=== PATIENT | female | born 1980 | race Hispanic/Latino ===

== ENCOUNTER 2018-08-01 16:09 | Emergency (ER) | payer BC, OTHER | END 2018-08-01 16:57 | disposition home or self-care (01) | LOC: EDH 16:09 | DX: S42.402A Unspecified fracture of lower end of left humerus, initial encounter for closed fracture (principal); Z72.0 Tobacco use; W18.39XA Other fall on same level, initial encounter; Y93.89 Activity, other specified; Y92.89 Other specified places as the place of occurrence of the external cause; Y99.8 Other external cause status | CPT/HCPCS: 99281 ==

== ENCOUNTER 2025-05-22 06:17 | Emergency (ER) | payer BC ==
[~2025-05-22] VITALS: Ht 162.6 cm; Wt 89.5 kg
--- NOTE | 2025-05-22 06:41 | ERN ---
General Chief Complaint: Abdominal Pain Stated Complaint: DIVERTICULITIS FLARE UP Time Seen by MD: 06:27 Source: patient History of Present Illness Initial Comments 44-year-old female with a history of diverticulitis. She feels like she is having a diverticulitis flare and comes in for evaluation and treatment. She points to her right upper quadrant as the source of her pain and clarifies that she has had her gallbladder and her appendix already removed. She says no fevers no chills positive diarrhea and positive GERD symptoms as well. Allergies: Coded Allergies: No Known Drug Allergies (Unverified Allergy, Unknown, 05/22/25) Past Medical History Past Medical History: Anxiety, Bipolar, Depression, Diverticulitis Past Surgical History: Appendectomy, Cholecystectomy, Female( History) LMP: May 17, 2025 Constitutional: (-) chills, (-) diaphoresis, (-) fever, (-) malaise, (-) weakness, (-) other documentation EENTM: (-) eye pain, (-) blurred vision, (-) tearing, (-) double vision, (-) ear pain, (-) ear discharge, (-) nose pain, (-) nose congestion, (-) throat pain, (-) Throat swelling, (-) mouth pain, (-) tooth pain, (-) mouth swelling, (-) other documentation Respiratory: (-) cough, (-) orthopnea, (-) short of breath, (-) stridor, (-) wheezing, (-) other documentation Cardiovascular: (-) chest pain, (-) edema, (-) palpitations, (-) syncope, (-) dyspnea on exertion, (-) other documentation Gastrointestinal/Abdominal: (+) nausea, (+) diarrhea, (+) abdominal pain, (+) rectal bleeding Genitourinary: (-) vaginal discharge, (-) vaginal bleeding, (-) dysuria, (-) frequency, (-) hematuria, (-) pain, (-) other documentation Musculoskeletal: (-) Neck pain, (-) back pain, (-) Flank Pain, (-) joint pain, (-) joint swelling, (-) muscle pain, (-) muscle stiffness, (-) gout, (-) other documentation Physical Exam General Appearance: (+) mild distress Orientation: (+) alert, (+) oriented x 3 Head/Face Trauma: No Eye: bilateral eye normal inspection, bilateral eye PERRL, bilateral eye EOMI Ear, Nose, Throat: (+) hearing grossly normal, (+) normal ENT inspection Neck: (+) normal inspection, (+) supple Respiratory: (+) chest non-tender, (+) lungs clear, (+) well ventilated Heart: (+) regular, (+) no gallop Vascular: (+) no edema, (+) normal peripheral pulse Gastrointestinal: (+) soft, (+) bowel sound present, (+) tender Results Laboratory and Microbiology Lab and Micro Result Laboratory Tests Test 05/22/25 06:37 05/22/25 06:54 White Blood Count 6.9 K/uL (4.8-10.8) Red Blood Count 4.94 MIL/uL (4.00-5.50) Hemoglobin 9.7 g/dL (12.0-16.0) L Hematocrit 33.1 % (36-48) L Mean Corpuscular Volume 67.0 fL (79-99) L Mean Corpuscular Hemoglobin 19.6 pg (27.0-33.0) L Mean Corpuscular Hemoglobin Concent 29.3 g/dL (32.0-36.0) L Red Cell Distribution Width 18.6 % (11.0-15.5) H Platelet Count 265 K/uL (130-400) Mean Platelet Volume 11.0 fL (7.5-10.5) H Immature Granulocyte % (Auto) 0.4 % (0-1) Neutrophils (%) (Auto) 60.0 % (40.0-77.0) Lymphocytes (%) (Auto) 27.6 % (21.0-51.0) Monocytes (%) (Auto) 5.5 % (3.0-13.0) Eosinophils (%) (Auto) 5.8 % (0.0-8.0) Basophils (%) (Auto) 0.7 % (0.0-5.0) Neutrophils # (Auto) 4.1 K/uL (1.8-7.7) Lymphocytes # (Auto) 1.9 K/uL (1.0-4.8) Monocytes # (Auto) 0.4 K/uL (0.1-1.0) Eosinophils # (Auto) 0.40 K/uL (0.00-0.70) Basophils # (Auto) 0.05 K/uL (0.00-0.20) Absolute Immature Granulocyte (auto 0.03 K/uL (0-1) Nucleated Red Blood Cells 0.0 % (0.0-0.19) Red Blood Cell Morphology See comments Sodium Level 139 mmol/L (136-145) Potassium Level 3.6 mmol/L (3.5-5.1) Chloride Level 105 mmol/L (101-111) Carbon Dioxide Level 25 mmol/L (21-32) Blood Urea Nitrogen 7 mg/dL (7-18) Creatinine 0.4 mg/dL (0.5-1.0) L Glomerular Filtration Rate Calc 125 mL/min (>90) Random Glucose 103 mg/dL (70-105) Total Calcium 8.5 mg/dL (8.5-10.1) Total Bilirubin 0.3 mg/dL (0.2-1.0) Aspartate Amino Transf (AST/SGOT) 19 U/L (10-37) Alanine Aminotransferase (ALT/SGPT) 28 U/L (12-78) Alkaline Phosphatase 78 U/L (50-136) Total Protein 7.1 g/dL (6.0-8.3) Albumin 3.4 g/dL (3.5-5.0) L Lipase 29 U/L (16-77) Urine Color LIGHT-YELLOW (YELLOW) Urine Appearance CLEAR (CLEAR) Urine pH 6.0 (5.0-8.0) Urine Specific A[place]da 1.016 (1.001-1.031) Urine Protein NEGATIVE mg/dL (NEGATIVE) Urine Glucose (UA) NEGATIVE mg/dL (NEGATIVE) Urine Ketones NEGATIVE mg/dL (NEGATIVE) Urine Occult Blood SMALL (NEGATIVE) H Urine Nitrate NEGATIVE (NEGATIVE) Urine Bilirubin NEGATIVE mg/dL (NEGATIVE) Urine Urobilinogen 0.2 mg/dL (0.2-1.0) Urine Leukocyte Esterase NEGATIVE Liss/uL Urine RBC 2-5 /HPF (0-1) H Urine WBC 0-1 /HPF (0-1) Urine Squamous Epithelial Cells RARE /HPF (0-2) Urine Bacteria None /HPF (None Seen) Urine HCG, Qualitative NEGATIVE (NEGATIVE) MDM MDM: Differential diagnosis: Rationale: Tests considered and ordered secondary to shared decision making include: Previous outside records reviewed: Old ER visits. Risk of complication and/or morbidity or mortality of patient management: None Medications-Per medication reconciliation Need for hospitalization: Patient does not meet criteria for hospitalization. Need for emergency major/minor surgery: No There are no social concerns with this patient. Prescription drug management Prescriptions will include symptomatic care Patient's prior external medical records from other ER visits were reviewed by me as indicated. Prior testing and results from previous visits were reviewed. Prior tests were taken into account with medical decision making and resource utilization, independent historian/historians were used to obtain complete medical history. I independently interpreted the test that were performed, results were reviewed by me and considered findings on radiology if ordered. Medical management and examination interpretation discussions were had by me with other qualified healthcare professionals as indicated for the patient's care. 44-year-old female hit off at shift change repeat evaluation reveals stable labs CT scan and urine, vital signs stable repeat abdominal exam is stable, patient advised about abnormal uterus on CT scan and need to follow up with a golf course mechanic. Her pain is now resolved to the right ED Course Orders Procedure Category Date Status Time Cbc With Differential LAB 05/22/25 Complete 06:28 Comprehensive LAB 05/22/25 Complete Metabolic Panel 06:28 Lipase LAB 05/22/25 Complete 06:28 Lidocaine Hcl 2% PHA 05/22/25 Complete Viscous (Lidocaine Hcl 07:00 Mag/Alum/Simeth 30ml PHA 05/22/25 Complete (Maalox Plus 30ml) 07:00 Dicyclomine Hcl PHA 05/22/25 Complete (Bentyl 10mg/5ml 07:00 12 Lead Ekg Tracing- EKG 05/22/25 Complete Technical 06:35 ,Urine Test LAB 05/22/25 Complete 06:35 Urinalysis Profile LAB 05/22/25 Complete 06:35 Ct Abdomen/Pelvis CT 05/22/25 Resulted W/Wo Contras 06:35 Iohexol (Omnipaque) PHA 05/22/25 Complete 07:48 Current Medications Medications (Trade) Dose Ordered Sig/Samina Route PRN Reason Start Time Stop Time Status Last Admin Dose Admin Al Hydroxide/Mg Hydroxide (MAALox PLUS 30ML) 30 ml ONCE ONCE PO 05/22/25 07:00 05/22/25 07:01 DC 05/22/25 07:24 Dicyclomine HCl (Bentyl 10mg/5ml Syrup) 10 mg ONCE ONCE PO 05/22/25 07:00 05/22/25 07:01 DC 05/22/25 07:24 Iohexol (Omnipaque) 35,000 mg STK-MED ONCE IV 05/22/25 07:48 05/22/25 07:48 DC Lidocaine HCl (Lidocaine HCl 2% Viscous) 10 ml ONCE ONCE PO 05/22/25 07:00 05/22/25 07:01 DC 05/22/25 07:24 Vital Signs Date Time Temp Pulse Resp B/P (MAP) Pulse Ox O2 Delivery O2 Flow Rate FiO2 05/22/25 06:48 98.4 74 14 133/63 100 Room Air* 0 21 05/22/25 06:18 98.6 82 19 136/79 99 Room Air 0 DX & DISP Disposition: Discharge Departure Impression: Primary Impression: Acute abdominal pain Condition: Stable Scripts Ondansetron (Ondansetron Odt) 4 Mg Tab.rapdis 1 TAB PO Q6HPRN PRN for nausea/vomiting for 4 Days, #16 TAB 0 Refills Prov: BE KO MD 05/22/25 Referrals: SELF,REFERRAL (PCP) ROSE MARIE ALLEN MD May 22, 2025 06:41 BE KO MD May 22, 2025 09:06
[2025-05-22 06:44] LABS: IMMATURE GRANULOCYTE ABSOLUTE 0.03 K/uL (0-1); NUCLEATED RED BLOOD CELLS 0.0 % (0.0-0.19); PLATELET COUNT (AUTO) 265 K/uL (130-400); RED BLOOD CELL COUNT(AUTO) 4.94 MIL/uL (4.00-5.50); RED CELL DISTRIBUTION WIDTH 18.6 % (11.0-15.5); WHITE BLOOD COUNT (AUTO) 6.9 K/uL (4.8-10.8)
[2025-05-22 07:02] LABS: ASPARTATE AMINOTRANSFERASE 19.0 U/L (10-37); CREATININE 0.4 mg/dL (0.5-1.0); GLOMERULAR FILTR. RATE CALC 125.0 mL/min (>90); GLUCOSE,RANDOM 103.0 mg/dL (70-105); SODIUM SERUM 139.0 mmol/L (136-145); TOTAL PROTEIN, SERUM 7.1 g/dL (6.0-8.3); UREA NITROGEN, BLOOD 7.0 mg/dL (7-18)
[2025-05-22 07:04] LABS: APPEARANCE,URINE CLEAR (CLEAR); GLUCOSE, URINE (UA) NEGATIVE (NEGATIVE); LEUKOCYTE ESTERASE ,URINE NEGATIVE Leu/uL (NEGATIVE); NITRATE,URINE NEGATIVE (NEGATIVE); OCCULT BLOOD,URINE SMALL (NEGATIVE)
--- NOTE | 2025-05-22 07:05 | NUR ---
REPORT GIVEN TO CHARGE NURSE RILEY AT THIS TIME
[2025-05-22 07:06] LABS: ADD UA MICROSCOPIC YES
[2025-05-22 07:09] LABS: SQUAMOUS EPITHELIAL CELL,UR RARE /HPF (0-2)
[2025-05-22 07:10] LABS: HCG,QUALITATIVE URINE NEGATIVE (NEGATIVE)
--- NOTE | 2025-05-22 07:14 | EKG ---
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
[2025-05-22] MEDS: MAG/ALUM/SIMETH 30 ML UDCUP PO ONE (07:24)
[2025-05-22] MEDS: LIDOCAINE HCL 2% VISCOUS 15 ML UDCUP PO ONE (07:24)
[2025-05-22] MEDS: DICYCLOMINE HCL 10 MG/5 ML ML PO ONE (07:24)
[2025-05-22] MEDS ORDERED: IOHEXOL 350 MG/ML 100ML INFUS..BTL IV ONE (07:48)
--- NOTE | 2025-05-22 08:29 | HMCIMG ---
EXAM: CT Abdomen and Pelvis with and without IV contrast CLINICAL HISTORY: diverticulitis TECHNIQUE: Axial computed tomography images of the abdomen and pelvis with and without intravenous contrast. CONTRAST: with and without intravenous contrast. COMPARISON: None provided. FINDINGS: LUNG BASES: The lung bases appear clear. No pleural effusions are seen. LIVER: Unremarkable. GALLBLADDER AND BILE DUCTS: The gallbladder appears within normal limits. No radioopaque gallstones are seen. No biliary ductal dilatation is evident. PANCREAS: Unremarkable. SPLEEN: Unremarkable. ADRENAL GLANDS: Unremarkable. KIDNEYS, URETERS, AND BLADDER: Normal kidneys. No hydronephrosis. Thickening of the urinary bladder which may be due to underdistention or cystitis. STOMACH AND BOWEL: No bowel obstruction or inflammation. Colonic diverticula without evidence of diverticulitis. APPENDIX: Surgical clips at the base of the cecum, consistent with prior appendectomy. PERITONEUM: No free fluid. No free air. LYMPH NODES: No lymphadenopathy is evident. REPRODUCTIVE: Markedly enlarged and heterogeneous uterus which is likely due to fibroids. VASCULATURE: No evidence of abdominal aortic aneurysm. BONES: No aggressive appearing osseous lesion. No acute osseous pathology evident. IMPRESSION: 1. No bowel obstruction or inflammation. Colonic diverticula without evidence of diverticulitis. 2. Normal kidneys. No hydronephrosis. 3. Thickening of the urinary bladder which may be due to underdistention or cystitis. 4. Markedly enlarged and heterogeneous uterus which is likely due to fibroids. 5. Surgical clips at the base of the cecum, consistent with prior appendectomy. /[place]
[2025-05-22] MEDS ORDERED: ONDA-243 PO (09:05)
[2025-05-22 09:09] VITALS: BP 121/65; PULSE 72; RESP 14; TEMP 98.4; O2SAT 99
== END 2025-05-22 09:15 | disposition home or self-care (01) ==
LOC: EDH 06:17
DX: R10.11 Right upper quadrant pain (principal); F41.9 Anxiety disorder, unspecified; F32.A Depression, unspecified; Z90.49 Acquired absence of other specified parts of digestive tract; Z98.890 Other specified postprocedural states
CPT/HCPCS: 99284; 74178; 80053; 83690; 85025; 81001; 81025; 36415; 93005; Q9967